=== PATIENT | female | born 2000 | race Caucasian/White ===

== ENCOUNTER 2024-07-22 06:21 | Emergency (ER) | payer BC ==
[~2024-07-22] VITALS: Ht 170.2 cm; Wt 77.3 kg
[2024-07-22 07:22] LABS: Urine Bacteria None Seen /hpf (None Seen)
[2024-07-22 07:44] LABS: Urine Blood TRACE /uL (Negative); Urine Clarity Clear (Clear); Urine Color Yellow (Yellow); Urine Mucus FEW (None Seen); Urine Protein, UAD 1+ (Negative); Urine Specific Gravity 1.033 (1.001-1.035); Urine Urobilinogen Normal (Negative); Urine WBC 1 /hpf (0 - 5); Urine pH 6.5 (5.0-9.0)
[2024-07-22 07:47] LABS: Hematocrit 42.8 % (36.0-46.0); Hemoglobin 14.4 g/dL (12.2-16.2); Mean Corpuscular Hemoglobin 32.4 pg (28.0-32.0); Mean Corpuscular Hgb Conc. 33.6 g/dL (32.0-36.0); Mean Corpuscular Volume 96.6 fL (80.0-100.0); Platelet Count (auto) 287 10^3/uL (140-450); Red Blood Cells 4.43 10^6/uL (4.0-5.20); Red Cell Distribution Width 14.4 % (11.8-14.3); White Blood Cell 12.1 10^3/uL (4.4-10.8)
[2024-07-22 07:50] LABS: Band Neutrophils % (manual) 0; Basophils % (manual) 0 (0.0-2.0); Blast Cells 0; Eosinophils % (manual) 0 (0-7); Metamyelocytes % 0; Myelocytes % 0; Promyelocytes % 0; Reactive Lymphocytes 0
[2024-07-22 07:54] LABS: Chloride 103 mmol/L (98-107); Sodium 141 mmol/L (136-145)
[2024-07-22 07:55] LABS: Anion Gap 18 (5-15); Carbon Dioxide 20 mmol/L (20-31)
[2024-07-22 07:56] LABS: Calcium 10.7 mg/dL (8.7-10.4)
[2024-07-22 08:00] LABS: BUN/Creatinine Ratio 11.5 (10.0-20.0); Blood Urea Nitrogen 9 mg/dL (9-23); Glucose 88 mg/dL (74-106)
[2024-07-22] MEDS: FAMOTIDINE (10MG/ML) 2ML VL IV ONE (09:04)
[2024-07-22] MEDS: KETOROLAC TROMETH 30 MG/ML 1ML VIAL IV ONE (09:04)
[2024-07-22 09:05] VITALS: BP 140/94; PULSE 101; RESP 16; TEMP 98.3; O2SAT 95
[2024-07-22] MEDS: ONDANSETRON HCL 4 MG/2 ML VIAL IV ONE (09:05)
[2024-07-22] MEDS: SODIUM CHLORIDE 0.9% 1,000 ML IV ONE (09:07)
[2024-07-22] MEDS ORDERED: ZOFR4T PO (09:28)
[2024-07-22 11:13] LABS: Lymphocytes % (manual) 9 (10.0-50.0); Monocytes % (manual) 2 (0-12); Platelet Estimate Adequate
== END 2024-07-22 06:59 | disposition home or self-care (01) ==
LOC: ER 06:21
DX: A08.4 Viral intestinal infection, unspecified (principal); J45.909 Unspecified asthma, uncomplicated; Z88.0 Allergy status to penicillin; Z88.2 Allergy status to sulfonamides
CPT/HCPCS: 36415; 80048; 81001; 81025; 85007; 85027; 96361; 96374; 96375; 99284; J1885; J2405; J3490; J7030

== ENCOUNTER → 2025-05-22 17:57 | Emergency (ER) | payer BC ==
[~2025-05-22 17:57] MED LIST: ZOFR4T PO
== END | disposition left against medical advice (07) ==
LOC: ER 17:57
DX: R11.2 Nausea with vomiting, unspecified (principal)

== ENCOUNTER 2025-05-22 18:00 | Emergency (ER) | payer BC ==
[~2025-05-22] VITALS: Ht 170.2 cm; Wt 81.9 kg
--- NOTE | 2025-05-22 18:41 | ED.PDOC ---
GI ASSESSMENT HPI Comments 24-year-old female came to ER for nausea and vomiting. Patient has a chronic alcohol drinker. Last drank alcohol last night. Has been having episodes of nausea vomiting and diarrhea since this morning. States she feels very weak. Denies using any other drugs Chief Complaint: Nausea/Vomiting Time Seen by MD: 18:40 Reviewed Notes: Nurses Notes Allergies: Coded Allergies: Amoxicillin (Verified Allergy, Unknown, 07/22/24) Penicillins (Verified Allergy, Unknown, 07/22/24) Home Meds Active Scripts Ondansetron Odt 4MG Tab (ZOFRAN PO) 4 Mg Tb, 4 MG PO TID PRN for 4 Days, #12 TAB ODT TAB-DISSOLVE IN MOUTH, THEN SWALLOW Prov:MINI CASTRO MD 07/22/24 Information Source: Patient, Relative (Mother) Mode of Arrival: Ambulatory Timing: Hours Duration: Intermittent Prehospital treatment: None Quality: Aching Vomitus: Watery Stool: Loose, Watery Severity: Moderate Recent: Ingestion of ETOH Pain Location: Epigastric Associated sign and symptoms: Nausea, Vomiting, Diarrhea, Abdominal Pain Past Medical History PAST MEDICAL HISTORY: Asthma Surgical History: Denies all surgeries Family History Family History: Reviewed,noncontributory to illness Social History Smoker: Non-Smoker Alcohol: Heavy Drugs: Denies Drug Use Lives In: Home Constitutional: reports: weakness; denies: chills, diaphoresis, fatigue, fever, malaise, sweats, others EENTM: denies: blurred vision, double vision, ear bleeding, ear discharge, ear drainage, ear pain, ear ringing, eye pain, eye redness, hearing loss, mouth pain, mouth swelling, nasal discharge, nose bleeding, nose congestion, nose pain, photophobia, tearing, throat pain, throat swelling, voice changes, others Respiratory: denies: cough, hemoptysis, orthopnea, SOB at rest, shortness of breath, SOB with excertion, stridor, wheezing, others Cardiovascular: denies: chest pain, dizzy spells, diaphoresis, Dyspnea on exertion, edema, irregular heart beat, left arm pain, lightheadedness, palpitations, PND, syncope, others Gastrointestinal: reports: abdominal pain, diarrhea, nausea, vomiting; denies: abdomen distended, blood streaked bowels, constipated, dysphagia, difficulty swallowing, hematemesis, melena, poor appetite, poor fluid intake, rectal bleeding, rectal pain, others Genitourinary: denies: abnormal vagina bleeding, burning, dyspareunia, dysuria, flank pain, frequency, hematuria, incontinence, pain, , vagina discharge, urgency, others Neurological: denies: dizziness, fainting, headache, left sided numbness, left sided weakness, numbness, paresthesia, pre-existing deficit, right sided numbness, right sided weakness, seizure, speech problems, tingling, tremors, weakness, others Musculoskeletal: denies: back pain, gout, joint pain, joint swelling, muscle pain, muscle stiffness, neck pain, others Integumetry: denies: bruises, change in color, change in hair/nails, dryness, laceration, lesions, lumps, rash, wounds, others Allergic/Immunocompromised: denies: Difficulty Healing, Frequent Infections, Hives, Itching, others Hematologic/Lymphatic: denies: anemia, blood clots, easy bleeding, easy bruising, swollen glands, others Endocrine: denies: excessive hunger, excessive sweating, excessive thirst, excessive urination, flushing, intolerance to cold, intolerance to heat, unexplained weight gain, unexplained weight loss, others Psychiatric: denies: anxiety, bipolar disorder, depression, hopeless, panic disorder, schizophrenia, sleepless, suicidal, others Physical Exam General Appearance: No Apparent Distress, Normal HEENT: Normal ENT Inspection, Pharynx Normal, TMs Normal Neck: Full Range of Motion, Non-Tender, Normal, Normal Inspection Respiratory: Chest Non-Tender, Lungs Clear, No Accessory Muscle Use, No Respiratory Distress, Normal Breath Sounds Cardiovascular: No Edema, No JVD, No Murmur, No Gallop, Normal Peripheral Pulses, Regular Rate/Rhythm Breast Exam: Deferred Gastrointestinal: No Organomegaly, Non Tender, No Pulsatile Mass, Normal Bowel Sounds, Soft Genitalia: Deferred Pelvic: Deferred Rectal: Deferred Extremities: No calf tenderness, Normal capillary refill, Normal inspection, Normal range of motion, Non-tender, No pedal edema Musculoskeletal : Apperance: Normal Neurologic: Alert, director weights and measures II-XII nml as Tested, No Motor Deficits, Normal Affect, Normal Mood, No Sensory Deficits Cerebellar Function: Normal Reflexes: Normal Skin: Dry, Normal Color, Warm Lymphatic: No Adenopathy Was a procedure done? Was a procedure done?: No GI differential Dx Differential Diagnosis: Cholecystitis, Diverticular disease, Gastritis/PUD, Gastroenteritis, Pancreatitis, UTI, Dehydration, Electrolyte Imbalance, Food Poisoning, Other (Alcohol abuse, alcohol intoxication, alcohol withdrawal, delirium tremens, dehydration,) X-Ray, Labs, Meds, VS Vital Signs Date Time Temp Pulse Resp B/P (MAP) Pulse Ox O2 Delivery O2 Flow Rate FiO2 05/22/25 19:50 98.6 95 18 134/92 (106) 99 98.6 05/22/25 18:03 98.3 117 18 121/83 98 98.3 Lab Test 05/22/25 20:29 05/22/25 18:50 Range/Units Urine Test Negative Negative Sodium Level 139 136-145 mmol/L Potassium Level 3.9 3.5-5.1 mmol/L Chloride Level 99 98-107 mmol/L Carbon Dioxide Level 17 L 20-31 mmol/L Anion Gap 23 H 5-15 Blood Urea Nitrogen 5 L 9-23 mg/dL Creatinine 0.79 0.550-1.02 mg/dL Glomerular Filtration Rate Calc 107 >90 mL/min BUN/Creatinine Ratio 6.3 L 10.0-20.0 Serum Glucose 105 74-106 mg/dL Calcium Level 10.1 8.7-10.4 mg/dL Current Medications Medications (Trade) Dose Ordered Sig/Natalie Route Start Time Stop Time Status Last Admin Sodium Chloride 1,000 ml @ 1,000 mls/hr Q1H ONCE IV 05/22/25 18:45 05/22/25 19:44 DC 05/22/25 19:58 Ondansetron HCl (Zofran) 4 mg ONCE ONCE IV 05/22/25 18:45 05/22/25 18:58 DC 05/22/25 20:02 Time of 1ST Reevaluation: 18:38 Reevaluation 1ST: Unchanged Time of 2ND Reevaluation: 21:08 Reevaluation 2ND: Improved Patient Education/Counseling: Diagnosis, Treatment, Prognosis, Need For Follow Up Family Education/Counseling: Diagnosis, Treatment, Prognosis, Need For Follow Up Comments Patient is an alcoholic, who expresses interest to stop drinking. She has been hydrated and she states she feels much better her workup is essentially unremarkable. However due to the concerns for withdrawal and if patient were sincere she will stop drinking when she leaves here and this may lead to withdrawal. I recommend that we admit her for the medical detoxification and then she may be able to check into a program to continue her rehabilitation. However patient states that she feels fine she wants to go home she is currently not showing any signs of withdrawal and she declined to be admitted. I have doubts about her sincerity about quitting, therefore she is not a candidate for a prescription for Librium. As if she goes back to drinking and takes the Librium there will be synergistic respiratory depression effect. But I did inform her that if she wants to quit and she feels any signs of withdrawal to return to the emergency room. SEPSIS Sepsis Screen Date sepsis recognized/suspect: May 22, 2025 Time Sepsis recognized/suspect: 1804 Recent Procedure: No On Antibiotic Therapy: No Respiratory Rate >20: No Heart Rate >90: Yes Temp<36 C (96.8 F) or >38.3 C: No SBP <90 or MAP <65 mmHG: No New Acute Mental Status Change: No Is the patient on CPAP, BIPAP,: No Vital Signs Date Time Temp Pulse Resp B/P (MAP) Pulse Ox O2 Delivery O2 Flow Rate FiO2 05/22/25 19:50 98.6 95 18 134/92 (106) 99 98.6 05/22/25 18:03 98.3 117 18 121/83 98 98.3 Medications Medications Dose Ordered Sig/Natalie Route Start Time Stop Time Status Last Admin Dose Admin Ondansetron HCl 4 mg ONCE ONCE IV 05/22/25 18:45 05/22/25 18:58 DC 05/22/25 20:02 Sodium Chloride 1,000 ml @ 1,000 mls/hr Q1H ONCE IV 05/22/25 18:45 05/22/25 19:44 DC 05/22/25 19:58 Departure 1 Departure Time of Disposition: 21:10 Impression: Primary Impression: Alcohol abuse Disposition: HOME / SELF CARE / HOMELESS Condition: Stable Discharged With: Self Critical Care Note Critical Care Time?: Yes (45 min-critical care time only) Critical care comment: Due to concerns for patients condition deteriorating, the care required my h ighest level of attention and readiness to intervene. I assessed the patient, reviewed the medical records, ordered the appropriate tests and treatments, then reassessed for results and responsiveness. I communicated with medical personnel and consultants and formulated a plan of care. Total critical care time excludes any procedures Stability Stability form required: No Heart Score Heart Score: Heart Score Response (Comments) Value History N/A 0 EKG N/A 0 Age N/A 0 Risk Factors N/A 0 Troponin N/A 0 Total 0 I personally scribed for ADITHYA NUNES MD ([email or web address]) on 05/22/25 at 18:41. Electronically submitted by Ant Henderson ([facility]). ADITHYA NUNES MD May 22, 2025 18:41
[2025-05-22 19:11] LABS: Chloride 99 mmol/L (98-107); Potassium 3.9 mmol/L (3.5-5.1); Sodium 139 mmol/L (136-145)
[2025-05-22 19:13] LABS: Anion Gap 23 (5-15); Calcium 10.1 mg/dL (8.7-10.4)
[2025-05-22 19:17] LABS: BUN/Creatinine Ratio 6.3 (10.0-20.0); Glucose 105 mg/dL (74-106)
[2025-05-22 19:19] LABS: Blood Urea Nitrogen 5 mg/dL (9-23); Carbon Dioxide 17 mmol/L (20-31)
[2025-05-22] MEDS: SODIUM CHLORIDE 0.9% 1,000 ML IV ONE (19:58)
[2025-05-22] MEDS: ONDANSETRON HCL 4 MG/2 ML VIAL IV ONE (20:02)
[2025-05-22 21:20] VITALS: BP 132/72; PULSE 92; RESP 14; TEMP 98.4; O2SAT 99
== END 2025-05-22 21:28 | disposition home or self-care (01) ==
LOC: ER 18:00
DX: F10.10 Alcohol abuse, uncomplicated (principal); R11.2 Nausea with vomiting, unspecified; J45.909 Unspecified asthma, uncomplicated; Z88.0 Allergy status to penicillin; Y90.9 Presence of alcohol in blood, level not specified
CPT/HCPCS: 36415; 80048; 81025; 96361; 96374; 99283; J2405; J7030